=== PATIENT | male | born 1985 | race African-American/Black ===

== ENCOUNTER 2019-12-17 14:09 | Emergency (ER) | payer SELFPAY ==
[~2019-12-17] VITALS: Ht 172.7 cm; Wt 84.0 kg
[2019-12-17 14:09] VITALS: BP 133/76
[2019-12-17] MEDS ORDERED: DOXY100C14 PO (14:30)
--- NOTE | 2019-12-17 14:30 | PHYS DOC ---
Past History Past Medical History: Asthma Past Surgical History: No Surgical History Alcohol Use: None General Adult EDM: Chief Complaint: INSECT BITE HPI: HPI: Patient is a 34-year-old male who presents with a bug bite that have been off and on for the last month. 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 Patient is here with her son who has similar symptoms. Patient denies any fever chills or cough. Patient has any shortness of breath. Pain is mild and worse with palpation. Review of Systems: Review of Systems: Constitutional: Denies fever or chills Eyes: Had some transient puffy eyes couple days ago which is since resolved HENT: Denies nasal congestion or sore throat Respiratory: Denies cough or shortness of breath Cardiovascular: Denies chest pain or edema GI: Denies abdominal pain, nausea, vomiting, bloody stools or diarrhea : Denies dysuria Musculoskeletal: Denies back pain or joint pain Integument: Complains of bug bite to left arm and leg Neurologic: Denies headache, focal weakness or sensory changes Endocrine: Denies polyuria or polydipsia Lymphatic: Denies swollen glands Psychiatric: Denies depression or anxiety Heart Score: Risk Factors: Risk Factors: DM, Current or recent (<one month) smoker, HTN, HLP, family history of CAD, obesity. Risk Scores: Score 0 - 3: 2.5% MACE over next 6 weeks - Discharge Home Score 4 - 6: 20.3% MACE over next 6 weeks - Admit for Clinical Observation Score 7 - 10: 72.7% MACE over next 6 weeks - Early Invasive Strategies Allergies: Allergies: Allergies Coded Allergies Type Severity Reaction Last Updated Verified No Known Drug Allergies 12/17/19 No Physical Exam: PE: Constitutional: Well developed, well nourished, no acute distress, non-toxic appearance. [] HENT: Normocephalic, atraumatic, bilateral external ears normal, no trismus, nose normal. [] Eyes: PERRLA, EOMI, conjunctiva normal, no discharge. [] Neck: Normal range of motion, no tenderness, supple, no stridor. [] Cardiovascular:Heart rate regular rhythm, peripheral pulse intact, cap refill is brisk Lungs & Thorax: Bilateral breath sounds clear, no respiratory distress Abdomen: soft, no tenderness, no masses, no pulsatile masses. [] Skin: Warm, dry, what appears to be bug bites on the left proximal forearm near the olecranon with minimal erythema but no drainable abscess and there is another bug bite on the left leg without drainable abscess erythema swelling Back: No tenderness, no CVA tenderness. [] Extremities: , no cyanosis, no clubbing, ROM intact, no edema. [] Neurologic: Alert and oriented X 3, normal motor function, normal sensory function, no focal deficits noted. [] Psychologic: Affect normal, judgement normal, mood normal. [] Current Patient Data: Vital Signs: Vital Signs Date Time Temp Pulse Resp B/P (MAP) Pulse Ox O2 Delivery O2 Flow Rate FiO2 12/17/19 14:09 97.2 90 18 133/76 (95) 99 Room Air EKG: EKG: [] Radiology/Procedures: Radiology/Procedures: [] Course & Med Decision Making: Course & Med Decision Making Pertinent Labs and Imaging studies reviewed. (See chart for details) [] 34-year-old male with a couple bug bites that may have some impetigo associated with them. Discussed with patient possible etiologies and he is unsure I discussed with him the possibility of bedbugs and he does have that addressed. Patient was placed on antibiotics for impetigo. Exosect Disclaimer: Exosect Disclaimer: This electronic medical record was generated, in whole or in part, using a voice recognition dictation system. Departure Departure: Impression: Primary Impression: Impetigo Disposition: 01 HOME/RESIDENCE PRIOR TO ADM Condition: STABLE Referrals: PCP,NO (PCP) pcp 2-3 days Patient Instructions: Impetigo Additional Instructions: EMERGENCY DEPARTMENT GENERAL DISCHARGE INSTRUCTIONS THANK YOU for coming to [facility] Emergency Department (ED) today and trusting us with your care. We trust that you had a positive experience in our Emergency Department. If you wish to speak to the department Management you can contact the emergency department at YOUR FOLLOW UP INSTRUCTIONS ARE FOLLOWS: Do you have a private doctor? If you do not have a private doctor, please ask for a resource list of physicians or clinics that may be able to assist you with follow up care. The Emergency Physician has interpreted your x-rays. The X-ray specialist will also review them. If there is a change in the findings you will be notified in 48 hours when at all possible. A lab test or lab culture may have been done, your results will be reviewed and you will be notified if you need a change in treatment. ADDITIONAL INSTRUCTIONS AND INFORMATION Your care today has been supervised by a physician who is specially trained in emergency care. Many problems require more than one evaluation for a complete diagnosis and treatment. We recommend that you schedule your follow up appointment as recommended to ensure complete treatment of your illness or injury. If you are unable to obtain follow up care and continue to have a problem, or if your condition worsens we recommend that you return to the ED. We are not able to safely determine your condition over the phone nor are we able to give sound medical advice over the phone. For these safety reasons, if you call for medical advice we will ask you to come to the ED for further evaluation If you have any questions regarding these discharge instructions please call the ED at . SAFETY INFORMATION In the interest of safety, wellness, and injury prevention; we encourage you to wear your seatbelt, if you smoke; quit smoking, and we encourage your family to use protective helmet for bicycling and other sporting events that present an increased risk for head injury. IF YOUR SYMPTOMS WORSEN OR NEW SYMPTOMS DEVELOP, OR YOU HAVE CONCERNS ABOUT YOUR CONDITION; OR IF YOUR CONDITION WORSENS WHILE YOU ARE WAITING FOR YOUR FOLLOW UP APPOINTMENT; EITHER CONTACT YOUR PRIMARY CARE DOCTOR, THE PHYSICIAN WHOSE NAME AND NUMBER YOU WERE GIVEN, OR RETURN TO THE ED IMMEDIATELY. Scripts Doxycycline Monohydrate (DOXYCYCLINE MONOHYDRATE) 100 Mg Capsule 1 CAP PO BID for pain, #20 CAP Prov: NATIVIDAD REILLY MD 12/17/19 Justification of Admission: Justification of Admission: Justification of Admission Dx: N/A NATIVIDAD REILLY MD Dec 17, 2019 14:30
== END 2019-12-17 14:43 | disposition home or self-care (01) ==
LOC: ER 14:09
DX: S50.862A Insect bite (nonvenomous) of left forearm, initial encounter (principal); S80.862A Insect bite (nonvenomous), left lower leg, initial encounter; L01.00 Impetigo, unspecified; J45.909 Unspecified asthma, uncomplicated; W57.XXXA Bitten or stung by nonvenomous insect and other nonvenomous arthropods, initial encounter; Y93.89 Activity, other specified; Y92.89 Other specified places as the place of occurrence of the external cause; Y99.8 Other external cause status
CPT/HCPCS: 99283

== ENCOUNTER 2020-04-11 13:46 | Emergency (ER) | payer SELFPAY ==
[~2020-04-11] VITALS: Ht 172.7 cm; Wt 84.0 kg
[~2020-04-11 13:46] MED LIST: DOXY100C14 PO
[2020-04-11] MEDS ORDERED: NAPROXEN 500 MG TABLET PO ONE (14:15)
--- NOTE | 2020-04-11 14:26 | RAD ---
Three-view left rib detail series and PA view chest x-ray Clinical indications: Fell down 10 steps. Lateral left rib pain. FINDINGS: There are nondisplaced fractures of the lateral aspect of the left sixth and seventh ribs. No lytic process is evident. Chest x-ray demonstrates no acute lung infiltrate or pulmonary edema or pneumothorax or pleural effusion. Heart size and pulmonary vasculature and mediastinum and both anusha are unremarkable. IMPRESSION: Nondisplaced fractures of the left sixth and seventh ribs. Electronically signed by: Mohit Wahl MD (04/11/2020 2:23 PM) [id number]
[2020-04-11] MEDS ORDERED: HYDR-2155 PO (14:43)
[2020-04-11] MEDS ORDERED: NAPR-514 PO (14:43)
--- NOTE | 2020-04-11 14:44 | PHYS DOC ---
Past History Past Medical History: Asthma, Hypertension Past Surgical History: No Surgical History Alcohol Use: None General Adult EDM: Chief Complaint: MECHANICAL FALL HPI: HPI: Patient is a 34-year-old male who presents emergency department with complaints of left lateral rib pain after falling down about 10 steps earlier today. Patient states he was carrying groceries when he got to the top of the steps he lost his balance and fell. He denies any head injury, neck pain, back pain, extremity pain, numbness, tingling, or weakness. Patient only complaint is pain in his left lateral ribs, he denies any shortness of breath or hemoptysis. He currently rates his pain a 6 out of 10 on the pain scale, he denies taking anything for relief of pain prior to arrival. He reports that the pain increases with deep breath and palpation. Review of Systems: Review of Systems: Complete ROS is negative unless otherwise noted in HPI. Current Medications: Current Meds: Current Medications Medications (Trade) Dose Ordered Sig/Saad Start Time Stop Time Status Last Admin Dose Admin Naproxen (Naprosyn) 500 mg 1X ONCE 04/11/20 14:15 04/11/20 14:16 DC 04/11/20 14:21 500 MG Allergies: Allergies: Allergies Coded Allergies Type Severity Reaction Last Updated Verified No Known Drug Allergies 04/11/20 No Physical Exam: PE: See Above Constitutional: Well developed, well nourished, no acute distress, non-toxic appearance. [] HENT: Normocephalic, atraumatic, bilateral external ears normal, nose normal. [] Eyes: PERRLA, EOMI, conjunctiva normal, no discharge. [] Neck: Normal range of motion, no stridor. [] Cardiovascular:Heart rate regular rhythm Lungs & Thorax: Respirations even and unlabored, no retractions, no respiratory distress; left lower lateral rib pain tenderness to palpation without renae bcutaneous emphysema or crepitus Back: Nontender, no obvious deformity, no crepitus Skin: Warm, dry, no erythema, no rash; abrasion to the left lateral ribs. [] Extremities: No cyanosis, ROM intact, no edema. [] Neurologic: Alert and oriented X 3, no focal deficits noted. [] Psychologic: Affect normal, judgement normal, mood normal. [] Current Patient Data: Vital Signs: Vital Signs Date Time Temp Pulse Resp B/P (MAP) Pulse Ox O2 Delivery O2 Flow Rate FiO2 04/11/20 13:50 98.2 115 28 146/81 (102) 100 Room Air EKG: EKG: [] Radiology/Procedures: Radiology/Procedures: PROCEDURE: RIBS LEFT AND PA CHEST Three-view left rib detail series and PA view chest x-ray Clinical indications: Fell down 10 steps. Lateral left rib pain. FINDINGS: There are nondisplaced fractures of the lateral aspect of the left sixth and seventh ribs. No lytic process is evident. Chest x-ray demonstrates no acute lung infiltrate or pulmonary edema or pneumothorax or pleural effusion. Heart size and pulmonary vasculature and mediastinum and both anusha are un remarkable. IMPRESSION: Nondisplaced fractures of the left sixth and seventh ribs.[] Heart Score: Risk Factors: Risk Factors: DM, Current or recent (<one month) smoker, HTN, HLP, family history of CAD, obesity. Risk Scores: Score 0 - 3: 2.5% MACE over next 6 weeks - Discharge Home Score 4 - 6: 20.3% MACE over next 6 weeks - Admit for Clinical Observation Score 7 - 10: 72.7% MACE over next 6 weeks - Early Invasive Strategies Course & Med Decision Making: Course & Med Decision Making Pertinent Labs and Imaging studies reviewed. (See chart for details) [] Germán Disclaimer: Germán Disclaimer: This electronic medical record was generated, in whole or in part, using a voice recognition dictation system. Departure Departure: Impression: Primary Impression: Rib fractures Qualified Codes: S22.42XA - Multiple fractures of ribs, left side, initial encounter for closed fracture Additional Impression: Fall down steps Qualified Codes: W10.8XXA - Fall (on) (from) other stairs and steps, initial encounter Disposition: 01 DC HOME SELF CARE/HOMELESS Condition: STABLE Referrals: PCP,NO (PCP) Patient Instructions: Rib Fracture, Xael-ti-Aafe Additional Instructions: Fill the prescriptions and take as directed for severe pain. Hold a pillow and cough at least 2 times every hour while awake. Follow up with your primary care doctor this week. Return to the ER if symptoms worsen. Scripts Naproxen (NAPROXEN) 500 Mg Tablet 1 TAB PO BID for pain for 10 Days, #20 TAB 0 Refills Prov: NAVEEN CASTANEDA RESEARCH PHYSICIAN 04/11/20 Hydrocodone Bit/Acetaminophen (HYDROCODONE-APAP 5-325 ) 1 Each Tablet 0.5-1 TAB PO PRN Q6HRS PRN for PAIN for 3 Days, #12 TAB 0 Refills Prov: NAVEEN CASTANEDA RESEARCH PHYSICIAN 04/11/20 NAVEEN CASTANEDA RESEARCH PHYSICIAN Apr 11, 2020 14:44
[2020-04-11] MEDS ORDERED: HYDROcodone/APAP 5/325MG 1 TAB TABLET PO ONE (14:45)
[2020-04-11 14:50] VITALS: BP 141/80
== END 2020-04-11 14:40 | disposition home or self-care (01) ==
LOC: ER 13:46
DX: S22.42XA Multiple fractures of ribs, left side, initial encounter for closed fracture (principal); J45.909 Unspecified asthma, uncomplicated; I10 Essential (primary) hypertension; W10.8XXA Fall (on) (from) other stairs and steps, initial encounter; Y93.89 Activity, other specified; Y92.89 Other specified places as the place of occurrence of the external cause; Y99.8 Other external cause status
CPT/HCPCS: 71101; 99284